=== PATIENT | female | born 1980 | race Caucasian/White ===

== ENCOUNTER 2022-12-02 18:37 | Outpatient (CLI) | payer OTHER, SELFPAY | END 2022-12-02 18:38 | disposition home or self-care (01) | LOC: AMB 12-21 15:18 | PROVIDERS: Visit Provider Emergency Medicine Emergency Medical Services | DX: S69.91XA Unspecified injury of right wrist, hand and finger(s), initial encounter (principal); S69.92XA Unspecified injury of left wrist, hand and finger(s), initial encounter; S29.9XXA Unspecified injury of thorax, initial encounter; V49.60XA Unspecified car occupant injured in collision with unspecified motor vehicles in traffic accident, initial encounter; Y92.415 Exit ramp or entrance ramp of street or highway as the place of occurrence of the external cause ==